=== PATIENT | female | born 1980 | race African-American/Black ===

== ENCOUNTER 2023-06-11 07:33 | Day surgery (SDC) | payer BC ==
[2023-06-11 09:36] LABS: BASO % 0.6 % (0-2.0); EOS % 0.7 % (0-4.5); HEMATOCRIT 29.8 % (32.4-45.2); HEMOGLOBIN 9.4 GM/dL (10.7-15.3); INR 1.03 (0.83-1.09); LYMPH % 25.6 % (8-40); MCHC 31.6 g/dl (32.0-36.0); MEAN CELL VOLUME 62.3 fl (80-96); MEAN PLT VOLUME 8.3 fl (7.5-11.1); MONO % 6.9 % (3.8-10.2); NEUT % 66.2 % (42.8-82.8); PLATELET COUNT 500 10^3/uL (134-434); RBC 4.78 M/mm3 (3.60-5.2); RDW 18.9 % (11.6-15.6); WHITE BLOOD COUNT 8.9 K/mm3 (4.0-10.0)
[2023-06-11 09:43] LABS: CALCIUM 8.9 mg/dL (8.5-10.1); POTASSIUM 4.2 mmol/L (3.5-5.1)
[2023-06-11 09:44] LABS: ALBUMIN 3.6 g/dl (3.4-5.0)
[2023-06-11 09:46] LABS: MCH 19.7 pg (25.7-33.7)
[2023-06-11 09:47] LABS: CREATININE 0.7 mg/dL (0.55-1.3)
[2023-06-11 09:49] LABS: BILIRUBIN,TOTAL 0.3 mg/dL (0.2-1); TOT PROT 7.6 g/dl (6.4-8.2)
[2023-06-11 10:21] VITALS: BMI 36.6
[2023-06-11 10:23] LABS: ANISOCYTOSIS 2+; OVALOCYTE 1+
[2023-06-11] MEDS ORDERED: PROPOFOL 40 ML ONE (10:46)
[2023-06-11] MEDS ORDERED: MIDAZOLAM HCL 2 MG/2 ML SINGLE DOSE VIAL ONE (10:47)
[2023-06-11] MEDS ORDERED: ROPIVACAINE HCL 0.5% 30ML VIAL ONE ×2 (10:50→11:12)
[2023-06-11] MEDS ORDERED: DEXAMETHASONE SOD PHOSPHATE 10 MG/1 ML VIAL ONE ×2 (10:50→11:12)
[2023-06-11] MEDS ORDERED: DEXAMETHASONE SOD PHOSPHATE 4 MG/1 ML VIAL ONE (11:55)
[2023-06-11] MEDS ORDERED: GLYCOPYRROLATE 0.2 MG/1 ML VIAL ONE (11:55)
[2023-06-11] MEDS ORDERED: ceFAZolin SODIUM 1 GM VIAL IVPB ONE (12:00)
[2023-06-11] MEDS ORDERED: ceFAZolin 2 GRAM PREMIX BAG IVPB ONE (12:50)
[2023-06-11] MEDS ORDERED: ACETAMINOPHEN INJECTION 100 ML IVPB ONE (13:04)
[2023-06-11] MEDS ORDERED: LACTATED RINGERS SOLUTION 1,000 ML IV SCH (13:15)
[2023-06-11] MEDS ORDERED: BUPIVACAINE HCL/PF 0.5% (5MG/ML) 10 ML VIAL ONE (13:44)
[2023-06-11] MEDS ORDERED: SODIUM CHLORIDE 0.9% P/F 10 ML VIAL IJ ONE ×2 (13:48)
[2023-06-11] MEDS ORDERED: ACETAMINOPHEN 1000 MG/100 ML BAG IVPB ONE (14:05)
[2023-06-11 15:29] VITALS: BP 137/76; PULSE 71; RESP 20; TEMP 97.5
[2023-06-11] MEDS ORDERED: CEFAZOLIN SODIUM 2 GM in DEXTROSE 5%-WATER 100 ML IVPB ONE (18:00)
== END 2023-06-11 19:04 | disposition home or self-care (01) ==
LOC: JER 07:33 → J6S 08:40 → JASUSAT 08:40
PROVIDERS: ATTEND Orthopaedic Surgery
PROC: 0QSJ04Z Reposition Right Fibula with Internal Fixation Device, Open Approach (ICD-10-PCS; principal; 2023-06-11 11:00)
DX: S82.61XA Displaced fracture of lateral malleolus of right fibula, initial encounter for closed fracture (principal); X58.XXXA Exposure to other specified factors, initial encounter; Y93.9 Activity, unspecified; Y92.9 Unspecified place or not applicable; Y99.9 Unspecified external cause status
CPT/HCPCS: 27792; C1713; 36415; 76000-TC-FY; 80053; 84703; 85025; 85610; 86850; 86900; 86901; 87635; 93005; 93010; 94760; 99285-25; C1725; J1100

== ENCOUNTER → 2025-02-14 | Day surgery (SDC) | payer BC | END | disposition home or self-care (01) | LOC: JRADUS-SUR 11:11 | PROVIDERS: ATTEND Family Medicine | PROC: 0H9U3ZX Drainage of Left Breast, Percutaneous Approach, Diagnostic (ICD-10-PCS; principal; 2025-02-14) | DX: D24.2 Benign neoplasm of left breast (principal) | CPT/HCPCS: 19083; 76642-TC-LT; 76942-TC; 77065-TC; 87899; 88305-TC; A4648 ==

== ENCOUNTER 2025-03-12 12:46 | Day surgery (SDC) | payer BC ==
[2025-03-12] MEDS: FERRIC CARBOXYMALTOSE 750 MG in SODIUM CHLORIDE 250 ML IVPB ONE (13:08)
[2025-03-12 14:01] VITALS: BP 130/70; PULSE 74; RESP 16; TEMP 98.1
== END 2025-03-12 14:03 | disposition home or self-care (01) ==
LOC: FINFUSION 12:46 → FM/S 12:49 → FINFUSION 14:03
PROVIDERS: ATTEND Family Medicine
PROC: 3E033GC Introduction of Other Therapeutic Substance into Peripheral Vein, Percutaneous Approach (ICD-10-PCS; principal; 2025-03-12)
DX: D50.9 Iron deficiency anemia, unspecified (principal)
CPT/HCPCS: J1439